=== PATIENT | male | born 1935 | race Caucasian/White ===

== ENCOUNTER → 2018-01-18 07:35 | Outpatient (CLI) | payer OTHER, SELFPAY ==
--- NOTE | 2018-01-18 | DI.MRI.S_ITS ---
PROCEDURE: MR HEAD/BRAIN WO CON INDICATIONS: MEMORY LOSS TECHNIQUE: Non-contrast axial T1 spin echo, axial T2 fast spin echo, sagittal and axial FLAIR, coronal T2 fast spin echo, axial gradient echo, axial diffusion and ADC through the brain. COMPARISON: [facility] , CT, BRAIN W/O CONTRAST, 12/01/2007, 13:39. [facility], CT, BRAIN W/O CONTRAST, 12/27/2012, 15:01. [facility], MR, MR BRAIN WO CON, 12/20/2015, 9:20. FINDINGS: Image quality: Excellent. CSF spaces: Ventricles appear symmetric in size and shape. Basal cisterns are patent. No extra-axial fluid collections. Brain: No intracranial bleeds or mass effects. There is cerebral volume loss for age. There are periventricular and deep white matter chronic small vessel ischemic changes. Brainstem appears normal. Diffusion-weighted images show no acute ischemic insults. No chronic ischemic insults. Normal intravascular flow voids are present. Skull and face: Calvarial bone marrow is normal in signal. Orbits are normal. Sinuses: Sinuses and mastoids are clear. Nasal septum deviates to the left. IMPRESSION: 1. No acute intracranial abnormality. 2. Mild age-related atrophy and chronic deep white matter ischemic changes show no appreciable progression since prior exam. Dictated by: Terry Stuart M.D. on 01/18/2018 at 9:24 Approved by: Terry Stuart M.D. on 01/18/2018 at 9:42
== END ==
PROVIDERS: PCP Family Medicine; Visit Provider Family Medicine
DX: R41.3 Other amnesia (principal)
CPT/HCPCS: 70551

== ENCOUNTER 2018-12-11 10:44 | Emergency (ER) | payer OTHER, SELFPAY ==
[2018-12-11 10:50] VITALS: BP 155/83; PULSE 62; RESP 15; TEMP 36.4; O2SAT 99
--- NOTE | 2018-12-11 10:52 | DI.RAD.S_ITS ---
PROCEDURE: XR CHEST 1V INDICATIONS: chest pain TECHNIQUE: One view of the chest was acquired. COMPARISON: [facility], CHEST 1 VIEW, 07/01/2017, 6:55. [facility], CHEST 1 VIEW, 06/02/2017, 12:59. FINDINGS: Surgical changes and devices: Sternotomy wires and mediastinal clips are seen. Lungs and pleura: Lungs are clear. No pleural effusions or pneumothorax. Mediastinum: The cardiac contours are within normal limits. The aorta demonstrates calcification and tortuosity. Bones and chest wall: No suspicious bony lesions. Age-appropriate bony degenerative changes are seen. Overlying soft tissues appear unremarkable. IMPRESSION: No acute cardiopulmonary process is seen. Postoperative and degenerative changes are seen. Dictated by: Charli Grant M.D. on 12/11/2018 at 10:41 Approved by: Charli Grant M.D. on 12/11/2018 at 10:42
[2018-12-11] MEDS: ASPIRIN 81 MG TAB 324 MG PO (11:09)
[2018-12-11] MEDS: SODIUM CHLORIDE 0.9% 1,000 ML 150 ML IV (11:09)
[2018-12-11 11:11] LABS: Add Manual Diff / Slide Review NO; Basophils Absolute Auto 0 /uL (0-100); Basophils Percent Auto 0.8 % (0-2); Eosinophils Absolute Auto 100 /uL (0-450); Eosinophils Percent Auto 2.2 % (2-4); Hematocrit 40.9 % (41-53); Hemoglobin 13.8 g/dL (13.5-17.5); Lymphocytes Absolute Auto 1600 /uL (1100-4500); Lymphocytes Percent Auto 33.1 % (25-40); Mean Corpuscular HGB Conc 33.8 % (30-36); Mean Corpuscular Hemoglobin 30.4 PG (26-34); Mean Corpuscular Volume 89.9 fL (80-100); Monocytes Absolute Auto 300 /uL (0-900); Monocytes Percent Auto 6.7 % (3-14); Neutrophils Absolute Auto 2800 /uL (1500-7000); Neutrophils Percent Auto 57.2 % (50-75); Platelet Count 184 X10^3/uL (150-400); Red Blood Cell Count 4.54 X10^6/uL (4.5-5.9); Red Cell Distribution Width 13.5 % (11.6-14.8); White Blood Cell Count 4.9 X10^3/uL (4.5-11.0)
[2018-12-11 11:25] LABS: Alanine Aminotransferase 23 IU/L (21-72); Albumin 4.5 g/dL (3.5-5.0); Albumin Globulin Ratio 1.6 (1.0-2.8); Alkaline Phosphatase 95 U/L (38-126); Aspartate Aminotransferase 30 IU/L (17-59); BUN Creatinine Ratio 12.2 (6-22); Bilirubin Total 0.8 mg/dL (0.2-1.3); Blood Urea Nitrogen 11 mg/dL (9-20); Calcium 9.5 mg/dL (8.4-10.2); Carbon Dioxide 27 mmol/L (22-32); Chloride 103 mmol/L (98-107); Creatine Kinase 142 U/L (55-170); Estimated Glomerular Filt Rate > 60.0 mL/min (>60); Globulin 2.8 g/dL (1.7-4.1); Glucose 142 mg/dL (80-110); Lipase 49 U/L (23-300); Potassium 3.9 mmol/L (3.4-5.1); Sodium 140 mmol/L (137-145); Total Protein 7.3 g/dL (6.3-8.2)
[2018-12-11 11:37] LABS: Troponin I < 0.012 ng/mL (0.01-0.034)
[2018-12-11 11:41] LABS: B Type Natriuretic Peptide 115 (<100); CKMB % Relative Index 1.9 % (1.5-5.0); Creatine Kinase MB 2.69 ng/mL (<2.37); HEMOLYSIS 17 (0-50)
--- NOTE | 2018-12-11 11:55 | DI.CT.S_ITS ---
PROCEDURE: CT HEAD/BRAIN WO CON INDICATIONS: dizziness TECHNIQUE: Noncontrast 4.5 mm thick angled axial sections acquired from the foramen magnum to the vertex, with coronal and sagittal reformats. For radiation dose reduction, the following was used: automated exposure control, adjustment of mA and/or kV according to patient size. COMPARISON: [facility], MR, MR HEAD/BRAIN WO CON, 01/18/2018, 8:20. Correlation is also made with brain MRI 12/20/15, head CT 12/27/13, and head CT 12/01/07. FINDINGS: Image quality: Excellent. CSF spaces: Basal cisterns are patent. No extra-axial fluid collections. The ventricles are symmetric in size and shape. Brain: No intracranial bleeds or masses. There is cerebral volume loss for age, with resultant ventricular and sulcal prominence. There are periventricular and deep white matter chronic small vessel ischemic changes. There is intracranial internal carotid artery atherosclerosis. Skull and face: Calvarium and visualized facial bones appear intact, without suspicious lesions. Sinuses: Mucosal thickening is seen within the left maxillary sinus. No abnormal fluid is seen within the mastoid air cells or within the middle ear cavities. IMPRESSION: Normal intracranial study for age. Note is made of age-appropriate brain parenchymal volume loss and chronic small vessel ischemic changes. Dictated by: Charli Grant M.D. on 12/11/2018 at 11:23 Approved by: Charli Grant M.D. on 12/11/2018 at 11:26
--- NOTE | 2018-12-11 12:04 | PC.NURSE ---
MD aware of pt hyperventilating. EKG done and pt states is dizzy. I dont know when asked about pain. Denies CP. Looks like possible Panic attack.
[2018-12-11 12:18] LABS: D Dimer 419 ng/mL (<230)
[2018-12-11 12:30] VITALS: BP 122/70; PULSE 56; RESP 17; O2SAT 99
--- NOTE | 2018-12-11 12:33 | ED.CHESTPAIN ---
HPI - Chest Pain General Chief Complaint: Chest Pain Stated Complaint: chest pain Time Seen by Provider: 12/11/18 10:45 Source: patient and family Mode of arrival: ambulatory Limitations: no limitations History of Present Illness HPI narrative: 83-year-old male nonsmoker with history of cardiac disease and GERD presents with episodes of chest pain on off for about least the past day or 2. He denies any current pain. He denies any provocation, palliation or radiation of his pain. He denies associated symptoms such as weakness, lightheadedness, nausea, vomiting, diaphoresis. He denies any recent travel or injury. MD complaint: chest pain Onset (ago): day(s) Duration: intermittent and now resolved Pain location: left chest Severity: moderate Quality: heaviness Pain radiation: none Relieving factors: nothing Exacerbating factors: nothing Treatments prior to arrival chest pain: none Related Data Home Medications Medication Instructions Recorded Confirmed aspirin 81 mg PO QDAY #0 05/30/06 Previous Rx's Medication Instructions Recorded atorvastatin [Lipitor] 40 mg PO HS #30 tab 07/02/17 isosorbide mononitrate 30 mg PO QDAY #30 tab 07/02/17 pantoprazole [Protonix] 40 mg PO QDAY #30 tab 07/02/17 Allergies Allergy/AdvReac Type Severity Reaction Status Date / Time No Known Drug Allergies Allergy Verified 12/11/18 10:55 Review of Systems Constitutional Denies chills, Denies fever(s), Denies lethargy and Denies weakness Eyes Denies change in vision, Denies eye discharge, Denies irritation and Denies loss of vision ENT Ears, Nose, Mouth, and Throat: Denies change in voice, Denies neck pain and Denies sore throat Cardiovascular Reports chest pain, Denies irregular heart rhythm, Denies lightheadedness, Denies palpitations, Denies dyspnea, Denies dyspnea on exertion and Denies orthopnea Respiratory Denies cough, Denies dyspnea, Denies dyspnea on exertion and Denies wheezing Gastrointestinal Gastrointestinal: Denies abdominal pain, Denies change in bowel habits, Denies diarrhea, Denies nausea and Denies vomiting Genitourinary Denies hematuria, Denies flank pain, Denies urinary incontinence and Denies urinary urgency Musculoskeletal Denies neck pain Integumentary/Breasts Denies pruritus, Denies erythema, Denies rash and Denies wounds Neurologic Denies confusion, Denies loss of vision and Denies weakness Psychiatric Denies anxiety, Denies confusion, Denies depression, Denies homicidal ideation and Denies suicidal ideation Endocrine Denies palpitations Hematologic/Lymphatic Denies easy bruising Allergic/Immunologic Denies wheezing PFSH Social History Smoking Status: Never smoker Social History Smoking Status: Never smoker Exam Narrative Exam Narrative: GENERAL: 83-year-old male pleasantly confused but at baseline per , no obvious distress HEAD: Atraumatic. Normocephalic. No temporal or scalp tenderness. EYES: Pupils equal round and reactive. Extraocular motions intact. No scleral icterus. No injection or drainage. ENT: Nose without bleeding, purulent drainage or septal hematoma. Throat without erythema, tonsillar hypertrophy or exudate. Uvula midline. Airway patent. NECK: Trachea midline. No JVD or lymphadenopathy. Supple, nontender, no meningeal signs. CARDIOVASCULAR: Regular rate and rhythm without murmurs, gallops, or rubs. RESPIRATORY: Clear to auscultation. Breath sounds equal bilaterally. No wheezes, rales, or rhonchi. GASTROINTESTINAL: Abdomen soft, non-tender, nondistended. No hepato-splenomegaly, or palpable masses. No guarding. EXTREMITIES: No clubbing, cyanosis, or edema. No joint tenderness, effusion, or edema noted. BACK: Nontender without deformity or crepitance. No flank tenderness. NEURO: AOx3. SKIN: No rash or erythema. Initial Vital Signs Initial Vital Signs: Vital Signs Temperature 97.6 F 12/11/18 10:50 Pulse Rate 62 12/11/18 10:50 Respiratory Rate 15 12/11/18 10:50 Blood Pressure 155/83 H 12/11/18 10:50 Pulse Oximetry 99 12/11/18 10:50 Course Course Narrative: Patient had an episode of dizziness which was seemingly unprovoked. Head CT was ordered to rule out intracranial pathology Orders Ordered: ED Orders 12/11/18 10:52 XR chest 1V Stat EKG-12 Lead Stat 12/11/18 11:00 B Type Natriuretic Peptide Stat Complete Blood Count AUTO DIFF Stat Comprehensive Metabolic Panel Stat D Dimer Stat Lipase Stat Troponin & CK Cardiac Panel Stat 12/11/18 11:55 CT head/brain wo con Stat 12/11/18 11:58 EKG-12 Lead Stat Discontinued Medications Aspirin (Aspirin Chew) 324 mg PO NOW ONE Stop: 12/11/18 10:53 Last Admin: 12/11/18 11:09 Dose: 324 mg Sodium Chloride (Normal Saline 0.9%) 1,000 mls @ 150 mls/hr IV CONT CHRISTIANO Last Admin: 12/11/18 11:09 Dose: 150 mls/hr Vital Signs - 8 hr 12/11/18 10:50 12/11/18 12:30 12/11/18 12:53 Temperature 97.6 F Pulse Rate 62 56 L 50 L Respiratory Rate 15 17 15 Blood Pressure 155/83 H 122/70 Blood Pressure [Left Arm] 122/70 Pulse Oximetry 99 99 100 MDM - Chest Pain Lab Data Result diagrams: 12/11/18 11:00 12/11/18 11:00 Lab Results 12/11/18 12/11/18 12/11/18 Range/Units 11:00 11:00 11:00 WBC 4.9 (4.5-11.0) X10^3/uL RBC 4.54 (4.5-5.9) X10^6/uL Hgb 13.8 (13.5-17.5) g/dL Hct 40.9 L (41-53) % MCV 89.9 (80-100) fL MCH 30.4 (26-34) PG MCHC 33.8 (30-36) % RDW 13.5 (11.6-14.8) % Plt Count 184 (150-400) X10^3/uL Neut % (Auto) 57.2 (50-75) % Lymph % (Auto) 33.1 (25-40) % [place] % (Auto) 6.7 (3-14) % Eos % (Auto) 2.2 (2-4) % Baso % (Auto) 0.8 (0-2) % Neut # (Auto) 2800 (6005-4156) /uL Lymph # (Auto) 1600 (4818-9794) /uL [place] # (Auto) 300 (0-900) /uL Eos # (Auto) 100 (0-450) /uL Baso # (Auto) 0 (0-100) /uL D-Dimer 419 H (<230) ng/mL Sodium 140 (137-145) mmol/L Potassium 3.9 (3.4-5.1) mmol/L Chloride 103 (98-107) mmol/L Carbon Dioxide 27 (22-32) mmol/L BUN 11 (9-20) mg/dL Creatinine 0.90 (0.66-1.25) mg/dL Estimated GFR > 60.0 (>60) mL/min BUN/Creatinine Ratio 12.2 (6-22) Glucose 142 H (80-110) mg/dL Calcium 9.5 (8.4-10.2) mg/dL Total Bilirubin 0.8 (0.2-1.3) mg/dL AST 30 (17-59) IU/L ALT 23 (21-72) IU/L Alkaline Phosphatase 95 (38-126) U/L Total Creatine Kinase 142 (55-170) U/L CK-MB (CK-2) 2.69 H (<2.37) ng/mL CK-MB (CK-2) Rel Index 1.9 (1.5-5.0) % Troponin I < 0.012 (0.01-0.034) ng/mL B-Natriuretic Peptide 115 H (<100) Total Protein 7.3 (6.3-8.2) g/dL Albumin 4.5 (3.5-5.0) g/dL Globulin 2.8 (1.7-4.1) g/dL Albumin/Globulin Ratio 1.6 (1.0-2.8) Lipase 49 (23-300) U/L Imaging Data Chest x-ray: Radiologist's impression: CT scan - head: Radiologist's impression: [place] [address] CT Scan Report Signed Patient: Wellington Ocampo#: [id number] : 1935Acct:[id number] Age/Sex: 83 / MDate of Service: 12/11/18 Loc: ED Accession Number: [id number] Procedure: CT head/brain wo con Ordering Provider: Duane Luz D.O. PROCEDURE: CT HEAD/BRAIN WO CON INDICATIONS: dizziness TECHNIQUE: Noncontrast 4.5 mm thick angled axial sections acquired from the foramen magnum to the vertex, with coronal and sagittal reformats. For radiation dose reduction, the following was used: automated exposure control, adjustment of mA and/or kV according to patient size. COMPARISON: [facility], MR, MR HEAD/BRAIN WO CON, 01/18/2018, 8:20. Correlation is also made with brain MRI 12/20/15, head CT 12/27/13, and head CT 12/01/07. FINDINGS: Image quality: Excellent. CSF spaces: Basal cisterns are patent. No extra-axial fluid collections. The ventricles are symmetric in size and shape. Brain: No intracranial bleeds or masses. There is cerebral volume loss for age, with resultant ventricular and sulcal prominence. There are periventricular and deep white matter chronic small vessel ischemic changes. There is intracranial internal carotid artery atherosclerosis. Skull and face: Calvarium and visualized facial bones appear intact, without suspicious lesions. Sinuses: Mucosal thickening is seen within the left maxillary sinus. No abnormal fluid is seen within the mastoid air cells or within the middle ear cavities. IMPRESSION: Normal intracranial study for age. Note is made of age-appropriate brain parenchymal volume loss and chronic small vessel ischemic changes. Dictated by: Charli Grant M.D. on 12/11/2018 at 11:23 Approved by: Charli Grant M.D. on 12/11/2018 at 11:26 MDM Narrative Medical decision making narrative: Multiple etiologies for patient's symptoms considered including: [Coronary artery disease versus atypical chest pain versus pneumonia versus pulmonary embolism versus other] Patient's symptoms improved or duration of stay with above-stated therapies. Findings and discharge diagnosis discussed with patient/family followed by verbalization of understanding Return precautions discussed with patient/family whom verbalize understanding. Discharge Plan Departure Patient Disposition: Home Clinical Impression: Atypical chest pain Discharge Date/Time: 12/11/18 12:54 Interventions: ED Discharge Assessment Last Done: 12/11/18 12:53 Instructions: DI for Atypical Chest Pain Activity Restrictions/Additional Instructions: *You have been diagnosed with [atypical chest pain] *What to do: *Take medications as directed *Follow up with your primary care provider in 2-3 days, call for an appointment. Let them know you were seen in the Emergency Department and that we ask that you be seen in follow up *Return to ER if you should have any new, worsening or concerning symptoms Prescriptions: No Action aspirin 81 MG tablet,delayed release (DR/EC) 81 mg PO QDAY Qty: 0 RF: 0 pantoprazole [Protonix] 40 MG tablet,delayed release (DR/EC) 40 mg PO QDAY Qty: 30 RF: 0 isosorbide mononitrate 30 MG tablet extended release 24 hr 30 mg PO QDAY Qty: 30 RF: 0 atorvastatin [Lipitor] 40 MG tablet 40 mg PO HS Qty: 30 RF: 3 Referrals: Lavelle Oliveira MD [Primary Care Provider] -
[2018-12-11 12:53] VITALS: BP 122/70; PULSE 50; RESP 15; O2SAT 100
--- NOTE | 2018-12-25 07:20 | PC.NURSE ---
NS 225cc total ran from 1100 to 1230
== END 2018-12-11 12:54 | disposition home or self-care (01) ==
PROVIDERS: Emergency Provider Emergency Medicine; PCP Family Medicine
DX: R07.89 Other chest pain (principal)
CPT/HCPCS: 36591; 70450; 71045; 80053; 82550; 82553; 83690; 83880; 84484; 85025; 85379; 93005; 96360; 99283; 99285

== ENCOUNTER 2019-06-06 16:59 | Emergency (ER) | payer OTHER, SELFPAY ==
[2019-06-06 17:09] VITALS: BP 151/89; PULSE 64; RESP 16; TEMP 36.4; O2SAT 100
--- NOTE | 2019-06-06 17:23 | ED_ITS ---
HPI - General Adult General Chief complaint: Dizziness Stated complaint: dizzy, h/o dementia Time Seen by Provider: 06/06/19 17:08 Source: patient and EMS Mode of arrival: EMS Limitations: no limitations History of Present Illness HPI narrative: 84-year-old male with a history of dementia. Is on medications for this however is fairly high functioning at home brought in by EMS for concerns of dizziness. Apparently this symptoms started earlier today. He is here with his . They are both fairly poor historians with regard to the symptoms he is having. He denies any chest pain or shortness of breath. His states that she is concerned about the shaking he is having in his arms. Patient denies any room spinning sensation. Have not tried anything for her symptoms prior to arrival Related Data Home Medications Medication Instructions Recorded Confirmed aspirin 81 mg PO QDAY #0 05/30/06 ascorbic acid (vitamin C) [Vitamin 250 mg PO DAILY 06/06/19 06/06/19 C] aspirin 81 mg PO DAILY 06/06/19 06/06/19 atorvastatin 40 mg PO DAILY 06/06/19 06/06/19 gabapentin 300 mg PO BID-TID 06/06/19 06/06/19 ibuprofen 200 mg PO DIRECTED PRN 06/06/19 06/06/19 memantine 10 mg PO BID 06/06/19 06/06/19 Previous Rx's Medication Instructions Recorded atorvastatin [Lipitor] 40 mg PO HS #30 tab 07/02/17 isosorbide mononitrate 30 mg PO QDAY #30 tab 07/02/17 pantoprazole [Protonix] 40 mg PO QDAY #30 tab 07/02/17 Allergies Allergy/AdvReac Type Severity Reaction Status Date / Time No Known Drug Allergies Allergy Unverified 06/06/19 17:33 Review of Systems Constitutional Constitutional: Denies chills, Denies fever(s), Denies headache(s) and Denies weakness Eyes Eyes: Denies change in vision ENT Ears, Nose, Mouth, and Throat: Denies headache(s) and Reports disequilibrium Cardiovascular Cardiovascular: Denies chest pain and Denies dyspnea Respiratory Respiratory: Denies cough and Denies dyspnea Gastrointestinal Gastrointestinal: Denies abdominal pain, Denies nausea and Denies vomiting Musculoskeletal Musculoskeletal: Denies myalgias, Denies arthralgias and Denies tingling Comments: Shaking of left hand Integumentary/Breasts Skin/Breast: Denies rash Neurologic Neurologic: Denies behavioral changes, Denies headache(s), Denies tingling, Denies paresthesias, Reports disequilibrium and Denies weakness Psychiatric Psychiatric: Denies behavioral changes Hematologic/Lymphatic Hematologic/Lymphatic: Denies easy bleeding and Denies easy bruising Patient History Medical History Dementia (Acute) Social History Smoking Status: Never smoker alcohol intake frequency: holidays/special occasions only Substance Use Type: does not use Exam Initial Vital Signs Initial Vital Signs: Vital Signs Temperature 97.5 F L 06/06/19 17:09 Pulse Rate 64 06/06/19 17:09 Respiratory Rate 16 06/06/19 17:09 Blood Pressure 151/89 H 06/06/19 17:09 Pulse Oximetry 100 06/06/19 17:09 Const General: cooperative and comfortable Orientation: alert, awake, oriented to person, oriented to place and not oriented to time HENMT Head: normal to inspection and normocephalic Ears: TM's normal bilaterally Nose: external nose normal Eyes Pupils: PERRL EOM: EOM intact bilaterally Resp Effort & Inspection: normal respiratory effort Auscultation: clear to auscultation bilaterally Cardio Rate: regular rate Rhythm: regular rhythm Pulses: radial pulses present GI Inspection: non-distended Palpation: soft Skin Lesions: no lesions Rashes: no rashes Neuro General: alert, awake and oriented x3 Cranial Nerves: CN's II-XI intact bilaterally Speech: speech normal Motor: muscle tone normal throughout, strength 5/5 throughout and no pronator drift Sensory Exam: no sensory deficits noted Extrem General: normal to inspection, capillary refill normal and No edema Psych Appearance: grossly normal and well kempt Scores GCS [place] coma scale eye opening: Spontaneous [place] coma scale verbal response: Orientated [place] coma scale motor response: Obey commands [place] coma scale total score: 15 Course Orders Ordered: ED Orders 06/06/19 17:09 EKG-12 Lead Stat 06/06/19 17:23 CT head/brain wo con Stat 06/06/19 17:28 Complete Blood Count AUTO DIFF Stat Comprehensive Metabolic Panel Stat Lipase Stat Troponin I Stat Discontinued Medications Meclizine HCl (Antivert) 25 mg PO NOW ONE Stop: 06/06/19 17:57 Last Admin: 06/06/19 18:23 Dose: 25 mg Documented by: TIFFANY Vital Signs Vital signs: Vital Signs - 8 hr 06/06/19 17:09 06/06/19 17:30 06/06/19 18:05 Temperature 97.5 F L Pulse Rate 64 59 L 60 Respiratory Rate 16 17 14 Blood Pressure 151/89 H Blood Pressure [Right Arm] 114/89 139/82 Pulse Oximetry 100 99 Medical Decision Making Medical Records Medical records reviewed: Yes I reviewed the patient's medical records. Lab Data Lab results reviewed: Yes I reviewed the patient's lab results. Result diagrams: 06/06/19 17:28 06/06/19 17:28 Labs: Lab Results 06/06/19 06/06/19 Range/Units 17:28 17:28 WBC 6.3 (4.5-11.0) X10^3/uL RBC 4.58 (4.5-5.9) X10^6/uL Hgb 14.1 (13.5-17.5) g/dL Hct 41.6 (41-53) % MCV 90.8 (80-100) fL MCH 30.7 (26-34) PG MCHC 33.8 (30-36) % RDW 12.9 (11.6-14.8) % Plt Count 212 (150-400) X10^3/uL Neut % (Auto) 43.0 L (50-75) % Lymph % (Auto) 43.4 H (25-40) % [place] % (Auto) 9.5 (3-14) % Eos % (Auto) 3.3 (2-4) % Baso % (Auto) 0.8 (0-2) % Neut # (Auto) 2700 (5862-4563) /uL Lymph # (Auto) 2700 (8833-8325) /uL [place] # (Auto) 600 (0-900) /uL Eos # (Auto) 200 (0-450) /uL Baso # (Auto) 0 (0-100) /uL Sodium 139 (137-145) mmol/L Potassium 4.0 (3.4-5.1) mmol/L Chloride 102 (98-107) mmol/L Carbon Dioxide 27 (22-32) mmol/L BUN 18 (9-20) mg/dL Creatinine 1.00 (0.66-1.25) mg/dL Estimated GFR > 60.0 (>60) mL/min BUN/Creatinine Ratio 18.0 (6-22) Glucose 96 (80-110) mg/dL Calcium 9.7 (8.4-10.2) mg/dL Total Bilirubin 0.6 (0.2-1.3) mg/dL AST 33 (17-59) IU/L ALT 27 (<50) IU/L Alkaline Phosphatase 110 (38-126) U/L Troponin I < 0.012 (0.01-0.034) ng/mL Total Protein 7.8 (6.3-8.2) g/dL Albumin 4.7 (3.5-5.0) g/dL Globulin 3.1 (1.7-4.1) g/dL Albumin/Globulin Ratio 1.5 (1.0-2.8) Lipase 68 (23-300) U/L Urine Dip Bedside Urine Glucose Negative Bedside Urine Bilirubin - Negative Bedside Urine Ketone - Negative Urine Specific Rose 1.010 Bedside Urine Occult Blood - Negative Bedside Urine pH 7.5 Bedside Urine Protein - Negative Bedside Urine Urobilinogen - Negative Bedside Urine Nitrite - Negative Bedside Urine Leukocytes - Negative Esterase Point of care testing: Urine Dip Bedside Urine Glucose Negative Bedside Urine Bilirubin - Negative Bedside Urine Ketone - Negative Urine Specific Rose 1.010 Bedside Urine Occult Blood - Negative Bedside Urine pH 7.5 Bedside Urine Protein - Negative Bedside Urine Urobilinogen - Negative Bedside Urine Nitrite - Negative Bedside Urine Leukocytes - Negative Esterase Imaging Data CT scan - head: Radiologist's impression: [place] [address] CT Scan Report Signed Patient: Kierra Ocampo#: [id number] : 7Acct:[id number] Age/Sex: 84 / MDate of Service: 06/06/19 Loc: ED Accession Number: [id number] Procedure: CT head/brain wo con Ordering Provider: Rajeev Walden D.O. PROCEDURE: CT HEAD/BRAIN WO CON INDICATIONS: ALTERED MENTAL STATUS AND PASSING OUT TECHNIQUE: Noncontrast 4.5 mm thick angled axial sections acquired from the foramen magnum to the vertex, with coronal and sagittal reformats. For radiation dose reduction, the following was used: automated exposure control, adjustment of mA and/or kV according to patient size. COMPARISON: [facility], CT, CT HEAD/BRAIN WO MARCIE, 12/11/2018, 12:06. FINDINGS: Image quality: Excellent. CSF spaces: Basal cisterns are patent. No extra-axial fluid collections. The ventricles are symmetric in size and shape. Brain: No intracranial bleeds or masses. There is cerebral volume loss for age, with resultant ventricular and sulcal prominence. There are periventricular and deep white matter chronic small vessel ischemic changes. There is intracranial internal carotid artery atherosclerosis. Skull and face: Calvarium and visualized facial bones appear intact, without suspicious lesions. Sinuses: Visualized sinuses and mastoids are clear. IMPRESSION: Mild to moderate microvascular atherosclerotic change in the deep white matter regions, expected for advanced age, no source for altered mental status is found. Dictated by: Richard Aleman M.D. on 06/06/2019 at 17:41 Approved by: Richard Aleman M.D. on 06/06/2019 at 17:42 ECG Data Attestation: I personally reviewed and interpreted this ECG as follows: Prior ECG tracings: not available for review Interpretation: Sinus rhythm Normal axis Ventricular rate is [address] T wave changes MDM Narrative Medical decision making narrative: EKG is unremarkable labs are unremarkable, head CT shows no acute changes. Low suspicion for CVA. Low suspicion for TIA. Low suspicion for ACS. Patient was able to ambulate to the bathroom without any problems. He states that he was still somewhat lightheaded but did not feel like he needed a walker to help him walk. I did offer him one. We did discuss the importance of avoiding falling. We discussed return precautions. I feel that we could hold on further workup for now. He was given return precautions. Both him and his expressed understanding and agreement with plan. Discharge Plan Departure Patient Disposition: Home Clinical Impression: Dizziness Instructions: How to Prevent Falls, DI for Dizziness-Nonvertigo Activity Restrictions/Additional Instructions: Continue all of your medications as directed. I recommend that you follow up with your primary provider in the next couple days. Return to the emergency department for any new or worsening symptoms Prescriptions: No Action aspirin 81 MG tablet,delayed release (DR/EC) 81 mg PO QDAY Qty: 0 RF: 0 pantoprazole [Protonix] 40 MG tablet,delayed release (DR/EC) 40 mg PO QDAY Qty: 30 RF: 0 isosorbide mononitrate 30 MG tablet extended release 24 hr 30 mg PO QDAY Qty: 30 RF: 0 atorvastatin [Lipitor] 40 MG tablet 40 mg PO HS Qty: 30 RF: 3 atorvastatin 40 mg Tablet 40 mg PO DAILY RF: 0 aspirin 81 mg Tablet,Delayed Release (Dr/Ec) 81 mg PO DAILY RF: 0 ascorbic acid (vitamin C) [Vitamin C] 250 mg Tablet 250 mg PO DAILY RF: 0 ibuprofen 200 mg Tablet 200 mg PO DIRECTED PRN (Reason: pain) RF: 0 gabapentin 300 mg Capsule 300 mg PO BID-TID RF: 0 memantine 10 mg Tablet 10 mg PO BID RF: 0 Referrals: Lavelle Oliveira MD [Primary Care Provider] -
[2019-06-06 17:30] VITALS: BP 114/89; PULSE 59; RESP 17; O2SAT 99
[2019-06-06 17:35] LABS: Add Manual Diff / Slide Review NO; Basophils Absolute Auto 0 /uL (0-100); Basophils Percent Auto 0.8 % (0-2); Eosinophils Absolute Auto 200 /uL (0-450); Eosinophils Percent Auto 3.3 % (2-4); Hematocrit 41.6 % (41-53); Hemoglobin 14.1 g/dL (13.5-17.5); Lymphocytes Absolute Auto 2700 /uL (1100-4500); Lymphocytes Percent Auto 43.4 % (25-40); Mean Corpuscular HGB Conc 33.8 % (30-36); Mean Corpuscular Hemoglobin 30.7 PG (26-34); Mean Corpuscular Volume 90.8 fL (80-100); Monocytes Absolute Auto 600 /uL (0-900); Monocytes Percent Auto 9.5 % (3-14); Neutrophils Absolute Auto 2700 /uL (1500-7000); Platelet Count 212 X10^3/uL (150-400); Red Blood Cell Count 4.58 X10^6/uL (4.5-5.9); Red Cell Distribution Width 12.9 % (11.6-14.8); White Blood Cell Count 6.3 X10^3/uL (4.5-11.0)
[2019-06-06 17:50] LABS: Alanine Aminotransferase 27 IU/L (<50); Albumin 4.7 g/dL (3.5-5.0); Albumin Globulin Ratio 1.5 (1.0-2.8); Alkaline Phosphatase 110 U/L (38-126); Aspartate Aminotransferase 33 IU/L (17-59); Bilirubin Total 0.6 mg/dL (0.2-1.3); Blood Urea Nitrogen 18 mg/dL (9-20); Calcium 9.7 mg/dL (8.4-10.2); Carbon Dioxide 27 mmol/L (22-32); Chloride 102 mmol/L (98-107); Estimated Glomerular Filt Rate > 60.0 mL/min (>60); Globulin 3.1 g/dL (1.7-4.1); Glucose 96 mg/dL (80-110); HEMOLYSIS < 15 (0-50); Lipase 68 U/L (23-300); Sodium 139 mmol/L (137-145); Total Protein 7.8 g/dL (6.3-8.2)
[2019-06-06 18:02] LABS: Troponin I < 0.012 ng/mL (0.01-0.034)
[2019-06-06 18:05] VITALS: BP 139/82; PULSE 60; RESP 14
[2019-06-06] MEDS: MECLIZINE HCL 12.5 MG TABLET 25 MG PO (18:23)
--- NOTE | 2019-06-06 19:01 | PC.NURSE ---
ambulated to restroom. C/O dizziness. States unsure if it has improved at all but feels steady on feet. Updated Dr. Walden
[2019-06-06 19:44] VITALS: BP 107/70; PULSE 67; RESP 20; TEMP 36.8; O2SAT 98
== END 2019-06-06 19:45 | disposition home or self-care (01) ==
PROVIDERS: Emergency Provider Emergency Medicine; PCP Family Medicine
DX: R42 Dizziness and giddiness (principal); R41.82 Altered mental status, unspecified
CPT/HCPCS: 36415; 70450; 80053; 81003; 83690; 84484; 85025; 93005; 99283; 99285

== ENCOUNTER 2019-07-28 14:53 | Emergency (ER) | payer OTHER, SELFPAY ==
--- NOTE | 2019-07-28 15:01 | DI.RAD.S_ITS ---
PROCEDURE: XR CHEST 1V INDICATIONS: chest pain TECHNIQUE: One view of the chest was acquired. COMPARISON: [facility], , XR CHEST 1V, 12/11/2018, 11:21. [facility], CR, CHEST 1 VIEW, 07/01/2017, 6:55. FINDINGS: Surgical changes and devices: Stable over time, sternotomy wires, presumed prior CABG. Lungs and pleura: Lungs are abnormal with a mild chronic interstitial prominence. No pleural effusions or pneumothorax. Mediastinum: Mediastinal contours appear normal. Heart size is normal. Bones and chest wall: No suspicious bony lesions. Overlying soft tissues appear unremarkable. 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 Dictated by: Richard Aleman M.D. on 07/28/2019 at 15:52 Approved by: Richard Aleman M.D. on 07/28/2019 at 15:53
[2019-07-28 15:26] VITALS: BP 124/62; PULSE 59; RESP 12; O2SAT 100
[2019-07-28 15:30] LABS: Add Manual Diff / Slide Review NO; Basophils Absolute Auto 0 /uL (0-100); Basophils Percent Auto 0.9 % (0-2); Eosinophils Absolute Auto 100 /uL (0-450); Eosinophils Percent Auto 1.9 % (2-4); Hemoglobin 12.9 g/dL (13.5-17.5); Lymphocytes Absolute Auto 1400 /uL (1100-4500); Mean Corpuscular HGB Conc 33.9 % (30-36); Mean Corpuscular Hemoglobin 30.7 PG (26-34); Mean Corpuscular Volume 90.6 fL (80-100); Monocytes Absolute Auto 500 /uL (0-900); Monocytes Percent Auto 8.4 % (3-14); Neutrophils Absolute Auto 3400 /uL (1500-7000); Neutrophils Percent Auto 62.8 % (50-75); Platelet Count 201 X10^3/uL (150-400); Red Blood Cell Count 4.19 X10^6/uL (4.5-5.9); Red Cell Distribution Width 13.2 % (11.6-14.8); White Blood Cell Count 5.5 X10^3/uL (4.5-11.0)
[2019-07-28 15:35] LABS: Prothrombin Time 11.7 SECONDS (10.1-12.7)
[2019-07-28 15:37] LABS: PTT Partial Thromboplastin Tim 34 SECONDS (26.4-36.2)
[2019-07-28 15:39] LABS: Alanine Aminotransferase 14 IU/L (<50); Albumin 4.1 g/dL (3.5-5.0); Albumin Globulin Ratio 1.4 (1.0-2.8); Alkaline Phosphatase 93 U/L (38-126); Aspartate Aminotransferase 23 IU/L (17-59); Bilirubin Total 0.3 mg/dL (0.2-1.3); Blood Urea Nitrogen 17 mg/dL (9-20); Calcium 9.1 mg/dL (8.4-10.2); Carbon Dioxide 27 mmol/L (22-32); Chloride 104 mmol/L (98-107); Creatine Kinase 92 U/L (55-170); Estimated Glomerular Filt Rate > 60.0 mL/min (>60); Glucose 74 mg/dL (80-110); HEMOLYSIS 16 (0-50); Lipase 62 U/L (23-300); Potassium 3.7 mmol/L (3.4-5.1); Sodium 140 mmol/L (137-145); Total Protein 7.1 g/dL (6.3-8.2)
[2019-07-28 15:50] LABS: Troponin I < 0.012 ng/mL (0.01-0.034)
[2019-07-28] MEDS: SODIUM CHLORIDE 0.9% 1,000 ML 1000 ML IV (16:10)
[2019-07-28 17:00] VITALS: BP 122/67; PULSE 57; RESP 14; O2SAT 98
[2019-07-28 18:30] VITALS: BP 124/69; PULSE 52; RESP 14; O2SAT 98
--- NOTE | 2019-07-28 18:32 | ED.CHESTPAIN ---
HPI - Chest Pain General Chief Complaint: Chest Pain Stated Complaint: CP Time Seen by Provider: 07/28/19 15:20 Source: patient Mode of arrival: Wheelchair History of Present Illness HPI narrative: The patient is an 84-year-old male who is a very poor historian and very vague. He had a transient period of chest pain. He states that his chest pain started while driving a car. He stopped and let his drive because he felt dizzy and lightheaded as though he might pass out. His discomfort initially was dull in achy. He denied any jaw pain shoulder pain back pain or pain between his shoulder blades. He denied any significant arm pain numbness or tingling. He denied any racing of his heart. When asked what intensity his pain was he had a hard time grasping the concept for giving me a score between 1 in 10. He had mild shortness of breath but no coughing. He denied any indigestion heartburn or chest pain. He primarily seem to concentrate on the fact that he became dizzy and felt as though he might pass out. He denied any fever chills or sweats. He had no cough or shortness of breath. He denied any abdominal pain nausea vomiting diarrhea or troubles urinating. Related Data Home Medications Medication Instructions Recorded Confirmed aspirin 81 mg PO QDAY #0 05/30/06 ascorbic acid (vitamin C) [Vitamin 250 mg PO DAILY 06/06/19 06/06/19 C] aspirin 81 mg PO DAILY 06/06/19 06/06/19 atorvastatin 40 mg PO DAILY 06/06/19 06/06/19 gabapentin 300 mg PO BID-TID 06/06/19 06/06/19 ibuprofen 200 mg PO DIRECTED PRN 06/06/19 06/06/19 memantine 10 mg PO BID 06/06/19 06/06/19 lidocaine 1 patch TOPICAL DAILY 07/28/19 07/28/19 Previous Rx's Medication Instructions Recorded atorvastatin [Lipitor] 40 mg PO HS #30 tab 07/02/17 isosorbide mononitrate 30 mg PO QDAY #30 tab 07/02/17 pantoprazole [Protonix] 40 mg PO QDAY #30 tab 07/02/17 Allergies Allergy/AdvReac Type Severity Reaction Status Date / Time No Known Drug Allergies Allergy Verified 07/28/19 15:00 Review of Systems Review of Systems Narrative: All review of systems were negative except for those mentioned in the history of present illness. Patient History Social History Smoking Status: Never smoker Smoking Status: Never smoker alcohol intake frequency: holidays/special occasions only Substance Use Type: does not use Exam Narrative Exam Narrative: PHYSICAL EXAM: CONSTITUTIONAL: Awake, slow to answer questions and speaks very softly. He had a blunt flat affect that appeared to be depressed. He was in NAD. Does not appear toxic or ill. HEAD: AT/NC EENT: PERRL, FROM of eyes, no discharge, no nystagmus No drainage from the ears, Tympanic membranes intact bilaterally, clear EAC No epistaxis or nasal drainage Oral mucosa is moist and pink, posterior pharynx is without erythema or exudate. NECK: Supple, no obvious JVD, Trachea is midline without stridor, no palpable LN or masses. SPINE: No gross deformity, no palpable tenderness of the cervical, thoracic, lumbar or sacral spine. No CVA tenderness. THORAX: No deformity, retractions, chest wall tenderness, subcutaneous air or crepitice. LUNGS: Clear with symmetrical breath sounds without respiratory distress HEART: Normal heart tones, regular rhythm and rate without murmur. ABDOMEN: Soft, non-tender, normal bowel sounds without guarding, rebound, rigidity or palpable mass EXTREMITIES: No edema, cyanosis, deformity or tenderness. SKIN: No rash, bruising, petechiae or purpura. NEURO: Awake, cranial nerves II-XII are symmetrical and normal, moves all 4 extremities and is ambulatory Initial Vital Signs Initial Vital Signs: Vital Signs Pulse Rate 59 L 07/28/19 15:26 Respiratory Rate 12 07/28/19 15:26 Blood Pressure 124/62 07/28/19 15:26 Pulse Oximetry 100 07/28/19 15:26 Course Course Course Narrative: The patient's initial troponin was within normal limits.183 his 2nd troponin remains pending at this time. He ambulated in the hallway without difficulty or dizziness. He had no orthostatic changes after he received 1 L of fluid. The patient will be discharged home if his 2nd troponin is normal. The patient will be advised to follow-up with his primary care physician to be referred to cardiology for further evaluation of his weakness dizziness and chest discomfort which may require an echocardiogram and Holter monitor. When the patient's chemistries resulted his glucose was 74. The question was whether not his dizziness was secondary to a hypoglycemic reaction. Orders Ordered: Discontinued Medications Sodium Chloride (Normal Saline 0.9%) 1,000 mls @ 1,000 mls/hr IV BOLUS ONE Stop: 07/28/19 17:42 Last Infusion: 07/28/19 17:25 Dose: 0 mls/hr Documented by: Admin: 07/28/19 16:10 Dose: 1,000 mls/hr Documented by: TIFFANY Vital Signs Vital signs: Vital Signs - 8 hr 07/28/19 15:26 07/28/19 17:00 Pulse Rate 59 L 57 L Respiratory Rate 12 14 Blood Pressure [Right Arm] 124/62 122/67 Pulse Oximetry 100 98 MDM - Chest Pain Lab Data Attestation: I reviewed the patient's lab results. Result diagrams: 07/28/19 15:20 07/28/19 15:20 Labs: Lab Results 07/28/19 07/28/19 07/28/19 Range/Units 15:20 15:20 15:20 WBC 5.5 (4.5-11.0) X10^3/uL RBC 4.19 L (4.5-5.9) X10^6/uL Hgb 12.9 L (13.5-17.5) g/dL Hct 38.0 L (41-53) % MCV 90.6 (80-100) fL MCH 30.7 (26-34) PG MCHC 33.9 (30-36) % RDW 13.2 (11.6-14.8) % Plt Count 201 (150-400) X10^3/uL Neut % (Auto) 62.8 (50-75) % Lymph % (Auto) 26.0 (25-40) % [place] % (Auto) 8.4 (3-14) % Eos % (Auto) 1.9 L (2-4) % Baso % (Auto) 0.9 (0-2) % Neut # (Auto) 3400 (7565-7051) /uL Lymph # (Auto) 1400 (1048-7123) /uL [place] # (Auto) 500 (0-900) /uL Eos # (Auto) 100 (0-450) /uL Baso # (Auto) 0 (0-100) /uL PT 11.7 (10.1-12.7) SECONDS INR 1.0 (0.9-1.3) APTT 34 (26.4-36.2) SECONDS Sodium 140 (137-145) mmol/L Potassium 3.7 (3.4-5.1) mmol/L Chloride 104 (98-107) mmol/L Carbon Dioxide 27 (22-32) mmol/L BUN 17 (9-20) mg/dL Creatinine 1.00 (0.66-1.25) mg/dL Estimated GFR > 60.0 (>60) mL/min BUN/Creatinine Ratio 17.0 (6-22) Glucose 74 L (80-110) mg/dL Calcium 9.1 (8.4-10.2) mg/dL Total Bilirubin 0.3 (0.2-1.3) mg/dL AST 23 (17-59) IU/L ALT 14 (<50) IU/L Alkaline Phosphatase 93 (38-126) U/L Total Creatine Kinase 92 (55-170) U/L CK-MB (CK-2) TNP CK-MB (CK-2) Rel Index TNP Troponin I < 0.012 (0.01-0.034) ng/mL Total Protein 7.1 (6.3-8.2) g/dL Albumin 4.1 (3.5-5.0) g/dL Globulin 3.0 (1.7-4.1) g/dL Albumin/Globulin Ratio 1.4 (1.0-2.8) Lipase 62 (23-300) U/L 07/28/19 Range/Units 18:01 WBC (4.5-11.0) X10^3/uL RBC (4.5-5.9) X10^6/uL Hgb (13.5-17.5) g/dL Hct (41-53) % MCV (80-100) fL MCH (26-34) PG MCHC (30-36) % RDW (11.6-14.8) % Plt Count (150-400) X10^3/uL Neut % (Auto) (50-75) % Lymph % (Auto) (25-40) % [place] % (Auto) (3-14) % Eos % (Auto) (2-4) % Baso % (Auto) (0-2) % Neut # (Auto) (5888-0881) /uL Lymph # (Auto) (0827-2318) /uL [place] # (Auto) (0-900) /uL Eos # (Auto) (0-450) /uL Baso # (Auto) (0-100) /uL PT (10.1-12.7) SECONDS INR (0.9-1.3) APTT (26.4-36.2) SECONDS Sodium (137-145) mmol/L Potassium (3.4-5.1) mmol/L Chloride (98-107) mmol/L Carbon Dioxide (22-32) mmol/L BUN (9-20) mg/dL Creatinine (0.66-1.25) mg/dL Estimated GFR (>60) mL/min BUN/Creatinine Ratio (6-22) Glucose (80-110) mg/dL Calcium (8.4-10.2) mg/dL Total Bilirubin (0.2-1.3) mg/dL AST (17-59) IU/L ALT (<50) IU/L Alkaline Phosphatase (38-126) U/L Total Creatine Kinase (55-170) U/L CK-MB (CK-2) CK-MB (CK-2) Rel Index Troponin I < 0.012 (0.01-0.034) ng/mL Total Protein (6.3-8.2) g/dL Albumin (3.5-5.0) g/dL Globulin (1.7-4.1) g/dL Albumin/Globulin Ratio (1.0-2.8) Lipase (23-300) U/L ECG Data Attestation: I personally reviewed and interpreted this ECG as follows: Interpretation: The patient's EKG obtained on July 28 at 15:0 1:40 a.m. reveals a ventricular rate of 62 with a sinus rhythm. The intervals are normal with a QTC of 445 milliseconds. [place] is normal. The patient has a Q-wave in lead III. The patient has flat T-waves in lead III and an inverted T-wave in V1. His EKG otherwise appears normal without any acute diagnostic ST segment changes. The patient has low voltage in the proper inferior leads. Discharge Plan Departure Patient Disposition: Home Clinical Impression: Atypical chest pain, Dizziness, nonspecific, Hypoglycemia Discharge Date/Time: 07/28/19 19:15 Instructions: DI for Acute Coronary Syndrome, DI for Atypical Chest Pain, DI for Hypoglycemia Activity Restrictions/Additional Instructions: You need to follow-up with her primary care physician and be referred to Cardiology for possible evaluation including an echocardiogram, stress test, and Holter monitor. Keep a log of when dizzy spells occur and the circumstances surrounding and how long they occur. If you become dizzy lightheaded developed chest pain that radiates to your back neck and jaw or shoulder or arm you need to return to the emergency department if you feel dizzy as if you're going to pass out you need to return to the emergency department. Continue your current medications. Prescriptions: No Action aspirin 81 MG tablet,delayed release (DR/EC) 81 mg PO QDAY Qty: 0 RF: 0 pantoprazole [Protonix] 40 MG tablet,delayed release (DR/EC) 40 mg PO QDAY Qty: 30 RF: 0 isosorbide mononitrate 30 MG tablet extended release 24 hr 30 mg PO QDAY Qty: 30 RF: 0 atorvastatin [Lipitor] 40 MG tablet 40 mg PO HS Qty: 30 RF: 3 atorvastatin 40 mg Tablet 40 mg PO DAILY RF: 0 aspirin 81 mg Tablet,Delayed Release (Dr/Ec) 81 mg PO DAILY RF: 0 ascorbic acid (vitamin C) [Vitamin C] 250 mg Tablet 250 mg PO DAILY RF: 0 ibuprofen 200 mg Tablet 200 mg PO DIRECTED PRN (Reason: pain) RF: 0 gabapentin 300 mg Capsule 300 mg PO BID-TID RF: 0 memantine 10 mg Tablet 10 mg PO BID RF: 0 lidocaine 5 % Adhesive Patch,Medicated 1 patch TOPICAL DAILY RF: 0 Referrals: Lavelle Oliveira MD [Primary Care Provider] -
[2019-07-28 18:44] LABS: Troponin I < 0.012 ng/mL (0.01-0.034)
== END 2019-07-28 19:15 | disposition home or self-care (01) ==
PROVIDERS: Emergency Provider Emergency Medicine; PCP Family Medicine
DX: R07.89 Other chest pain (principal); R42 Dizziness and giddiness; E16.2 Hypoglycemia, unspecified
CPT/HCPCS: 36415; 71045; 80053; 82550; 83690; 84484; 85025; 85610; 85730; 93005; 93010; 96360; 99284; 99285

== ENCOUNTER 2021-02-07 19:59 | Emergency (ER) | payer OTHER, SELFPAY ==
[2021-02-07] VITALS (10 sets, daily range): BP systolic 123–166; BP diastolic 67–91; PULSE 58–66; RESP 24; TEMP 36.4; O2SAT 92–99
--- NOTE | 2021-02-07 20:01 | DI.CT.S_ITS ---
PROCEDURE: CT HEAD/BRAIN WO CON INDICATIONS: confusion possible trauma TECHNIQUE: Noncontrast 4.5 mm thick angled axial sections acquired from the foramen magnum to the vertex, with coronal and sagittal reformats. For radiation dose reduction, the following was used: automated exposure control, adjustment of mA and/or kV according to patient size. COMPARISON: [facility], CT, CT HEAD/BRAIN WO CON, 06/06/2019, 17:26. [facility], CT, CT HEAD/BRAIN WO CON, 12/11/2018, 12:06. FINDINGS: Image quality: Excellent. CSF spaces: Basal cisterns are patent. No extra-axial fluid collections. The ventricles are symmetric in size and shape. Brain: No intracranial masses. There are left-sided There is cerebral volume loss for age, with resultant ventricular and sulcal prominence. There are periventricular and deep white matter chronic small vessel ischemic changes. There is intracranial internal carotid artery atherosclerosis. Skull and face: Calvarium and visualized facial bones appear intact, without suspicious lesions. Sinuses: Visualized sinuses and mastoids are clear. IMPRESSION: A combination of both subdural and subarachnoid hemorrhage is present on the left, interdigitating within left temporal region and left parietal region sulci, without significant mass effect. A portion of the thin hemorrhage extends into the sylvian fissure. No brain tissue hemorrhage is found. No overlying calvarial fracture is identified. No midline shift from left to right. Findings immediately called to and discussed with Dr. Walden, caring for the patient. Dictated by: Richard Aleman M.D. on 02/07/2021 at 20:38 Approved by: Richard Aleman M.D. on 02/07/2021 at 20:44
--- NOTE | 2021-02-07 20:13 | ED.GENADULT ---
HPI - General Adult <Rajeev Walden DO - Last Filed: 02/08/21 17:55> General Chief complaint: Altered Mental Status Stated complaint: Stroke Time Seen by Provider: 02/07/21 20:01 Source: EMS Mode of arrival: EMS Limitations: altered mental status History of Present Illness HPI narrative: Patient is an 85-year-old male. No reported anticoagulation. EMS reports they were called by the patient's for evaluation of altered mental status. The patient does have reported history of dementia. Is also reported that his has a history of dementia. They live together here in town. His last known normal was 1829 by report but this is not necessarily confirmed. Is reported that the patient's found him sitting on their stairs at home more confused than normal. She was the 1 who contacted EMS. There is no reports of any trauma. Patient is unable to provide any HPI or review of systems. Related Data Home Medications Medication Instructions Recorded Confirmed aspirin 81 mg tablet,delayed 81 mg PO QDAY #0 05/30/06 release ascorbic acid (vitamin C) 250 mg 250 mg PO DAILY 06/06/19 06/06/19 tablet (Vitamin C) aspirin 81 mg tablet,delayed 81 mg PO DAILY 06/06/19 06/06/19 release atorvastatin 40 mg tablet 40 mg PO DAILY 06/06/19 06/06/19 gabapentin 300 mg capsule 300 mg PO BID-TID 06/06/19 06/06/19 ibuprofen 200 mg tablet 200 mg PO DIRECTED PRN 06/06/19 06/06/19 memantine 10 mg tablet 10 mg PO BID 06/06/19 06/06/19 lidocaine 5 % topical patch 1 patch TOPICAL DAILY 07/28/19 07/28/19 Previous Rx's Medication Instructions Recorded atorvastatin 40 mg tablet (Lipitor) 40 mg PO HS #30 tab 07/02/17 isosorbide mononitrate 30 mg 30 mg PO QDAY #30 tab 07/02/17 tablet,extended release 24 hr pantoprazole 40 mg tablet,delayed 40 mg PO QDAY #30 tab 07/02/17 release (Protonix) Allergies Allergy/AdvReac Type Severity Reaction Status Date / Time No Known Drug Allergies Allergy Verified 07/28/19 15:00 <Duane Luz DO - Last Filed: 02/08/21 09:25> History of Present Illness HPI narrative: Patient is an 85-year-old male. No reported anticoagulation. EMS reports they were called by the patient's for evaluation of altered mental status. The patient does have reported history of dementia. Is also reported that his has a history of dementia. They live together here in town. His last known normal was 1829 by report but this is not necessarily confirmed. Is reported that the patient's found him sitting on their stairs at home more confused than normal. She was the 1 who contacted EMS. There is no reports of any trauma. Patient is unable to provide any HPI or review of systems. PATIENT IS FULL CODE per daughter Uziel Review of Systems <Rajeev Walden DO - Last Filed: 02/08/21 17:55> Review of Systems ROS Unobtainable: Unobtainable due to mental condition Patient History <Rajeev Walden DO - Last Filed: 02/08/21 17:55> Medical History Atypical chest pain Chest pain Dementia Dizziness Gastroesophageal reflux disease Hypertension Viral upper respiratory infection Surgical History (Updated 02/08/21 @ 09:23 by Duane Luz DO) S/P CABG x 5 Social History Smoking Status: Never smoker Smoking Status: Never smoker alcohol intake frequency: holidays/special occasions only Substance Use Type: does not use Exam <Rajeev Walden DO - Last Filed: 02/08/21 17:55> Initial Vital Signs Initial Vital Signs: Vital Signs Temperature 97.6 F 02/07/21 20:06 Pulse Rate 60 02/07/21 20:06 Respiratory Rate 24 02/07/21 20:06 Blood Pressure 156/84 H 02/07/21 20:06 Pulse Oximetry 99 02/07/21 20:06 Const General: comfortable, well developed, well groomed, No in distress and No ill appearing HENMT Head: contusion (Left parietal/occipital region) Ears: hearing grossly normal bilaterally Nose: external nose normal Face and sinus: normal facial exam Eyes General: appearance normal, both eyes and all related structures Pupils: PERRL EOM: EOM intact bilaterally Neck Neck: normal visual inspection Chest Chest: No crepitus and No tenderness Resp Effort & Inspection: normal respiratory effort Auscultation: clear to auscultation bilaterally Cardio Rate: regular rate Rhythm: regular rhythm GI Inspection: normal to inspection and non-distended Palpation: soft Back/Spine/Pelvis Cervical Spine: No cervical spinal tenderness Thoracic/Lumbar Spine: No thoracic spinal tenderness and No lumbar spinal tenderness Skin Other: Contusion left posterior scalp Neuro General: patient alert, patient awake, moves all extremities and patient confused Cognition: abnormal cognition (Confusion) Speech: speech normal Motor: muscle tone normal throughout Sensory Exam: no sensory deficits noted Coordination: [id number] test normal Extrem General: normal to inspection and capillary refill normal Other: Does not seem to have any discomfort with movement of upper and lower extremities [place] palpation of his pelvis Psych Appearance: grossly normal and well kempt <Duane Luz DO - Last Filed: 02/08/21 09:25> Initial Vital Signs Initial Vital Signs: Vital Signs Temperature 97.6 F 02/07/21 20:06 Pulse Rate 60 02/07/21 20:06 Respiratory Rate 24 02/07/21 20:06 Blood Pressure 156/84 H 02/07/21 20:06 Pulse Oximetry 99 02/07/21 20:06 Scores <Rajeev Walden DO - Last Filed: 02/08/21 17:55> GCS [place] coma scale eye opening: Spontaneous [place] coma scale verbal response: Confused [place] coma scale motor response: Obey commands [place] coma scale total score: 14 NIH Stroke Scale Level of Conciousness: Alert, keenly responsive Ask month/age: Answers neither question correctly, aphasic, stuporous, coma Open/close eyes, close hand: Performs both tasks correctly Best gaze horizontal: Normal Visual nicholson: No visual loss Facial palsy: Normal symetrical movement Left arm drift: No drift for full 10 sec Right arm drift: No drift for full 10 sec Left leg drift: No drift for full 5 sec Right leg drift: No drift for full 5 sec Limb ataxia: Absent Sensory on face/arms/legs: Normal, no sensory loss Best language: No aphasia, normal Dysarthria: Normal Extinction or inattention: No abnormality Total NIH Stroke scale score: 2 <Duane Luz DO - Last Filed: 02/08/21 09:25> GCS [place] coma scale total score: 14 NIH Stroke Scale Total NIH Stroke scale score: 2 Course <Rajeev Walden DO - Last Filed: 02/08/21 17:55> Orders Ordered: Discontinued Medications Acetaminophen (Acetaminophen 325 Mg Tablet) 650 mg PO NOW ONE Stop: 02/07/21 22:51 Last Admin: 02/07/21 23:01 Dose: 650 mg Documented by: RISHI Sodium Chloride (Normal Saline 0.9%) 1,000 mls @ 500 mls/hr IV BOLUS ONE Stop: 02/08/21 08:38 Last Infusion: 02/08/21 09:12 Dose: 0 mls/hr Documented by: Admin: 02/08/21 06:51 Dose: 500 mls/hr Documented by: HAZEL Ondansetron HCl (Ondansetron 4 Mg/2 Ml Inj) 4 mg IV NOW ONE Stop: 02/07/21 21:17 Last Admin: 02/07/21 21:21 Dose: 4 mg Documented by: HAZEL Vital Signs Vital signs: Vital Signs - 8 hr 02/08/21 01:30 02/08/21 02:00 02/08/21 02:30 Pulse Rate 63 62 66 Respiratory Rate Blood Pressure 108/62 108/62 107/65 Pulse Oximetry 96 93 95 02/08/21 03:00 02/08/21 03:30 02/08/21 04:00 Pulse Rate 61 59 L 54 L Respiratory Rate Blood Pressure 104/61 99/57 L 99/56 L Pulse Oximetry 99 100 99 02/08/21 04:30 02/08/21 04:31 02/08/21 05:00 Pulse Rate 57 L 72 59 L Respiratory Rate Blood Pressure 95/53 L Pulse Oximetry 97 97 99 02/08/21 05:03 02/08/21 05:05 02/08/21 05:30 Pulse Rate 60 61 60 Respiratory Rate Blood Pressure 108/61 Pulse Oximetry 99 98 98 02/08/21 06:00 02/08/21 06:16 02/08/21 06:30 Pulse Rate 58 L 57 L 59 L Respiratory Rate Blood Pressure 107/58 L 99/57 L Pulse Oximetry 99 97 96 02/08/21 07:00 02/08/21 07:30 02/08/21 08:12 Pulse Rate 57 L 57 L 67 Respiratory Rate Blood Pressure 104/60 Pulse Oximetry 95 97 94 02/08/21 08:21 02/08/21 08:30 02/08/21 08:43 Pulse Rate 60 56 L Respiratory Rate 16 Blood Pressure 112/58 L Pulse Oximetry 100 100 02/08/21 09:00 Pulse Rate 55 L Respiratory Rate Blood Pressure Pulse Oximetry 100 <Duane Luz, - Last Filed: 02/08/21 09:25> Orders Ordered: Discontinued Medications Acetaminophen (Acetaminophen 325 Mg Tablet) 650 mg PO NOW ONE Stop: 02/07/21 22:51 Last Admin: 02/07/21 23:01 Dose: 650 mg Documented by: RISHI Sodium Chloride (Normal Saline 0.9%) 1,000 mls @ 500 mls/hr IV BOLUS ONE Stop: 02/08/21 08:38 Last Infusion: 02/08/21 09:12 Dose: 0 mls/hr Documented by: Admin: 02/08/21 06:51 Dose: 500 mls/hr Documented by: HAZEL Ondansetron HCl (Ondansetron 4 Mg/2 Ml Inj) 4 mg IV NOW ONE Stop: 02/07/21 21:17 Last Admin: 02/07/21 21:21 Dose: 4 mg Documented by: HAZEL Consultations Consultation #1: [id number] - [place] [facility] PHAN happy to accept [place] [facility] [facility] Consultation #2: Daughter UZIEL ([phone]) Vital Signs Vital signs: Vital Signs - 8 hr 02/08/21 01:30 02/08/21 02:00 02/08/21 02:30 Pulse Rate 63 62 66 Respiratory Rate Blood Pressure 108/62 108/62 107/65 Pulse Oximetry 96 93 95 02/08/21 03:00 02/08/21 03:30 02/08/21 04:00 Pulse Rate 61 59 L 54 L Respiratory Rate Blood Pressure 104/61 99/57 L 99/56 L Pulse Oximetry 99 100 99 02/08/21 04:30 02/08/21 04:31 02/08/21 05:00 Pulse Rate 57 L 72 59 L Respiratory Rate Blood Pressure 95/53 L Pulse Oximetry 97 97 99 02/08/21 05:03 02/08/21 05:05 02/08/21 05:30 Pulse Rate 60 61 60 Respiratory Rate Blood Pressure 108/61 Pulse Oximetry 99 98 98 02/08/21 06:00 02/08/21 06:16 02/08/21 06:30 Pulse Rate 58 L 57 L 59 L Respiratory Rate Blood Pressure 107/58 L 99/57 L Pulse Oximetry 99 97 96 02/08/21 07:00 02/08/21 07:30 02/08/21 08:12 Pulse Rate 57 L 57 L 67 Respiratory Rate Blood Pressure 104/60 Pulse Oximetry 95 97 94 02/08/21 08:21 02/08/21 08:30 02/08/21 08:43 Pulse Rate 60 56 L Respiratory Rate 16 Blood Pressure 112/58 L Pulse Oximetry 100 100 02/08/21 09:00 Pulse Rate 55 L Respiratory Rate Blood Pressure Pulse Oximetry 100 Medical Decision Making <Rajeev Walden, DO - Last Filed: 02/08/21 17:55> Medical Records Medical records reviewed: Yes I reviewed the patient's medical records. Lab Data Lab results reviewed: Yes I reviewed the patient's lab results. Result diagrams: 02/07/21 20:08 02/07/21 20:08 Labs: Lab Results 02/07/21 02/07/21 02/07/21 Range/Units 20:08 20:08 20:08 WBC 5.3 (4.5-11.0) X10^3/uL RBC 4.17 L (4.5-5.9) X10^6/uL Hgb 12.4 L (13.5-17.5) g/dL Hct 37.2 L (41-53) % MCV 89.2 (80-100) fL MCH 29.7 (26-34) PG MCHC 33.3 (30-36) % RDW 13.4 (11.6-14.8) % Plt Count 182 (150-400) X10^3/uL Neut % (Auto) 52.5 (50-75) % Lymph % (Auto) 35.9 (25-40) % [place] % (Auto) 10.5 (3-14) % Eos % (Auto) 0.7 L (2-4) % Baso % (Auto) 0.4 (0-2) % Neut # (Auto) 2800 (1113-6494) /uL Lymph # (Auto) 1900 (2540-5210) /uL [place] # (Auto) 600 (0-900) /uL Eos # (Auto) 0 (0-450) /uL Baso # (Auto) 0 (0-100) /uL PT (10.1-12.7) SECONDS INR (0.9-1.3) APTT (26.4-36.2) SECONDS Sodium 140 (137-145) mmol/L Potassium 3.5 (3.4-5.1) mmol/L Chloride 106 (98-107) mmol/L Carbon Dioxide 25 (22-32) mmol/L BUN 24 H (9-20) mg/dL Creatinine 0.91 (0.66-1.25) mg/dL Estimated GFR > 60.0 (>60) mL/min BUN/Creatinine Ratio 26.4 H (6-22) Glucose 142 H (80-110) mg/dL Calcium 9.0 (8.4-10.2) mg/dL Total Bilirubin 0.4 (0.2-1.3) mg/dL AST 38 (17-59) IU/L ALT 25 (<50) IU/L Alkaline Phosphatase 139 H (38-126) U/L Total Creatine Kinase 183 H (55-170) U/L CK-MB (CK-2) 2.99 H (<2.37) ng/mL CK-MB (CK-2) Rel Index 1.6 (1.5-5.0) % Troponin I < 0.012 (0.01-0.034) ng/mL Total Protein 6.9 (6.3-8.2) g/dL Albumin 4.1 (3.5-5.0) g/dL Globulin 2.8 (1.7-4.1) g/dL Albumin/Globulin Ratio 1.5 (1.0-2.8) Urine Color Urine Appearance Urine pH (4.5-8.0) Ur Specific [place] (1.000-1.035) Urine Protein (Negative) Urine Glucose (UA) (Negative) g/dL Urine Ketones (NEGATIVE) Urine Occult Blood (Negative) Urine Nitrate (Negative) Urine Bilirubin (NEGATIVE) Urine Urobilinogen (0.2) E.U./dL Ur Leukocyte Esterase (NEGATIVE) Urine RBC (0-5/HPF) Urine WBC (0-5/HPF) Urine Bacteria (None) Ur Culture Indicated? Micro UA Comment Salicylates < 1.0 (<20) mg/dL U Opiates 300ng/mL cut (Negative) Ur Oxycodone Screen (Negative) Urine Methadone Screen (Negative) Acetaminophen < 10 L (10-30) ug/mL Ur Barbiturates Screen (Negative) U Tricyclic Antidepress (Negative) Ur Phencyclidine Scrn (Negative) Ur Amphetamines Screen (Negative) U Methamphetamines Scrn (Negative) Ur MDMA Scrn (Ecstasy) (Negative) U Benzodiazepines Scrn (Negative) Urine Cocaine Screen (Negative) U Marijuana (THC) Screen (Negative) Ethyl Alcohol < 10 ( - 10) mg/dL SARS-CoV-2 (PCR) (Negative) 02/07/21 02/07/21 02/08/21 Range/Units 20:10 20:25 00:35 WBC (4.5-11.0) X10^3/uL RBC (4.5-5.9) X10^6/uL Hgb (13.5-17.5) g/dL Hct (41-53) % MCV (80-100) fL MCH (26-34) PG MCHC (30-36) % RDW (11.6-14.8) % Plt Count (150-400) X10^3/uL Neut % (Auto) (50-75) % Lymph % (Auto) (25-40) % [place] % (Auto) (3-14) % Eos % (Auto) (2-4) % Baso % (Auto) (0-2) % Neut # (Auto) (0554-0225) /uL Lymph # (Auto) (3897-6566) /uL [place] # (Auto) (0-900) /uL Eos # (Auto) (0-450) /uL Baso # (Auto) (0-100) /uL PT 12.1 (10.1-12.7) SECONDS INR 1.1 (0.9-1.3) APTT 31 (26.4-36.2) SECONDS Sodium (137-145) mmol/L Potassium (3.4-5.1) mmol/L Chloride (98-107) mmol/L Carbon Dioxide (22-32) mmol/L BUN (9-20) mg/dL Creatinine (0.66-1.25) mg/dL Estimated GFR (>60) mL/min BUN/Creatinine Ratio (6-22) Glucose (80-110) mg/dL Calcium (8.4-10.2) mg/dL Total Bilirubin (0.2-1.3) mg/dL AST (17-59) IU/L ALT (<50) IU/L Alkaline Phosphatase (38-126) U/L Total Creatine Kinase (55-170) U/L CK-MB (CK-2) (<2.37) ng/mL CK-MB (CK-2) Rel Index (1.5-5.0) % Troponin I (0.01-0.034) ng/mL Total Protein (6.3-8.2) g/dL Albumin (3.5-5.0) g/dL Globulin (1.7-4.1) g/dL Albumin/Globulin Ratio (1.0-2.8) Urine Color Urine Appearance Urine pH (4.5-8.0) Ur Specific [place] (1.000-1.035) Urine Protein (Negative) Urine Glucose (UA) (Negative) g/dL Urine Ketones (NEGATIVE) Urine Occult Blood (Negative) Urine Nitrate (Negative) Urine Bilirubin (NEGATIVE) Urine Urobilinogen (0.2) E.U./dL Ur Leukocyte Esterase (NEGATIVE) Urine RBC (0-5/HPF) Urine WBC (0-5/HPF) Urine Bacteria (None) Ur Culture Indicated? Micro UA Comment Salicylates (<20) mg/dL U Opiates 300ng/mL cut Negative (Negative) Ur Oxycodone Screen Negative (Negative) Urine Methadone Screen Negative (Negative) Acetaminophen (10-30) ug/mL Ur Barbiturates Screen Negative (Negative) U Tricyclic Antidepress Negative (Negative) Ur Phencyclidine Scrn Negative (Negative) Ur Amphetamines Screen Negative (Negative) U Methamphetamines Scrn Negative (Negative) Ur MDMA Scrn (Ecstasy) Negative (Negative) U Benzodiazepines Scrn Negative (Negative) Urine Cocaine Screen Negative (Negative) U Marijuana (THC) Screen Negative (Negative) Ethyl Alcohol ( - 10) mg/dL SARS-CoV-2 (PCR) Negative (Negative) 02/08/21 Range/Units 00:35 WBC (4.5-11.0) X10^3/uL RBC (4.5-5.9) X10^6/uL Hgb (13.5-17.5) g/dL Hct (41-53) % MCV (80-100) fL MCH (26-34) PG MCHC (30-36) % RDW (11.6-14.8) % Plt Count (150-400) X10^3/uL Neut % (Auto) (50-75) % Lymph % (Auto) (25-40) % [place] % (Auto) (3-14) % Eos % (Auto) (2-4) % Baso % (Auto) (0-2) % Neut # (Auto) (5770-2710) /uL Lymph # (Auto) (3806-0670) /uL [place] # (Auto) (0-900) /uL Eos # (Auto) (0-450) /uL Baso # (Auto) (0-100) /uL PT (10.1-12.7) SECONDS INR (0.9-1.3) APTT (26.4-36.2) SECONDS Sodium (137-145) mmol/L Potassium (3.4-5.1) mmol/L Chloride (98-107) mmol/L Carbon Dioxide (22-32) mmol/L BUN (9-20) mg/dL Creatinine (0.66-1.25) mg/dL Estimated GFR (>60) mL/min BUN/Creatinine Ratio (6-22) Glucose (80-110) mg/dL Calcium (8.4-10.2) mg/dL Total Bilirubin (0.2-1.3) mg/dL AST (17-59) IU/L ALT (<50) IU/L Alkaline Phosphatase (38-126) U/L Total Creatine Kinase (55-170) U/L CK-MB (CK-2) (<2.37) ng/mL CK-MB (CK-2) Rel Index (1.5-5.0) % Troponin I (0.01-0.034) ng/mL Total Protein (6.3-8.2) g/dL Albumin (3.5-5.0) g/dL Globulin (1.7-4.1) g/dL Albumin/Globulin Ratio (1.0-2.8) Urine Color Yellow Urine Appearance Clear Urine pH 7.0 (4.5-8.0) Ur Specific [place] 1.015 (1.000-1.035) Urine Protein Negative (Negative) Urine Glucose (UA) Negative (Negative) g/dL Urine Ketones Negative (NEGATIVE) Urine Occult Blood Negative (Negative) Urine Nitrate Negative (Negative) Urine Bilirubin Negative (NEGATIVE) Urine Urobilinogen 1.0 (0.2) E.U./dL Ur Leukocyte Esterase Negative (NEGATIVE) Urine RBC None seen (0-5/HPF) Urine WBC None seen (0-5/HPF) Urine Bacteria None seen (None) Ur Culture Indicated? Cult not indicated Micro UA Comment Microscopic normal Salicylates (<20) mg/dL U Opiates 300ng/mL cut (Negative) Ur Oxycodone Screen (Negative) Urine Methadone Screen (Negative) Acetaminophen (10-30) ug/mL Ur Barbiturates Screen (Negative) U Tricyclic Antidepress (Negative) Ur Phencyclidine Scrn (Negative) Ur Amphetamines Screen (Negative) U Methamphetamines Scrn (Negative) Ur MDMA Scrn (Ecstasy) (Negative) U Benzodiazepines Scrn (Negative) Urine Cocaine Screen (Negative) U Marijuana (THC) Screen (Negative) Ethyl Alcohol ( - 10) mg/dL SARS-CoV-2 (PCR) (Negative) Point of Care Testing Glucose POC 139 Point of care testing: Point of Care Testing Glucose POC [address] scan - head: Radiologist's Impression: [address] [id number] Scan ReportSigned Patient: Wellington OcampoMR#: [id number]: 7Acct:[id number]/Sex: 85 / MDate of Service: 02/07/21Loc: EDAccession Number: [id number] Procedure: CT head/brain wo con Ordering Provider: Rajeev Walden D.O. PROCEDURE: CT HEAD/BRAIN WO CON INDICATIONS: confusion possible trauma TECHNIQUE: Noncontrast 4.5 mm thick angled axial sections acquired from the foramen magnum to the vertex, with coronal and sagittal reformats. For radiation dose reduction, the following was used: automated exposure control, adjustment of mA and/or kV according to patient size. COMPARISON: [facility], CT, CT HEAD/BRAIN WO CON, 06/06/2019, 17:26. [facility], CT, CT HEAD/BRAIN WO CON, 12/11/2018, 12:06. FINDINGS: Image quality: Excellent. CSF spaces: Basal cisterns are patent. No extra-axial fluid collections. The ventricles are symmetric in size and shape. Brain: No intracranial masses. There are left-sided There is cerebral volume loss for age, with resultant ventricular and sulcal prominence. There are periventricular and deep white matter chronic small vessel ischemic changes. There is intracranial internal carotid artery atherosclerosis. Skull and face: Calvarium and visualized facial bones appear intact, without suspicious lesions. Sinuses: Visualized sinuses and mastoids are clear. IMPRESSION: A combination of both subdural and subarachnoid hemorrhage is present on the left, interdigitating within left temporal region and left parietal region sulci, without significant mass effect. A portion of the thin hemorrhage extends into the sylvian fissure. No brain tissue hemorrhage is found. No overlying calvarial fracture is identified. No midline shift from left to right. Findings immediately called to and discussed with Dr. Walden, caring for the patient. Dictated by: Richard Aleman M.D. on 02/07/2021 at 20:38 Approved by: Richard Aleman M.D. on 02/07/2021 at 20:[address]: Radiologist's Impression: Left sylvian fissure and left frontoparietal sulcal blood collections have improved when compared to previous exam. No new hemorrhages. No signs of cortical infarction ECG Data Attestation: I personally reviewed and interpreted this ECG as follows: Interpretation: Sinus rhythm Ventricular rate is 60 Normal axis Normal QRS Normal QTC No ST T wave changes MDM Narrative Medical decision making narrative: 85-year-old male not on anticoagulation. Was unable to provide any HPI review of systems upon arrival secondary to confusion. He did have a contusion on the left posterior portion of his scalp. Initial head CT shows a subdural and subarachnoid hemorrhage. After a period of time waiting for neural surgery to contact us back I did discuss the case with Neurosurgery at [facility]. He reviewed the head CT. At that point it had been 3-1/2 hours after his initial head CT in neurosurgery recommended a repeat head CT at the 4 hour jimena. He stated that if the head bleed had not worsened than the plan will be is for the patient to be admitted for observation and then work with disposition. Nurse surgery a stated that it would not be unreasonable for the patient to stay at our facility despite the lack of neuro surgery consultation because there would be no indication for surgery. He did state that he would accept the patient in transfer it if our hospitalist was uncomfortable with admitting the patient. A repeat head CT showed that the subarachnoid hemorrhage had not improved but had not worsened. The subdural hemorrhage had improved. I did discuss the case with ASSISTANT Coats the night hospitalist to stated that there was concern about potential worsening of the patient's condition and so she has that the patient be transferred. We contacted [facility] once again stating that we would like to proceed with transfer. The patient remained in the emergency department for greater than 12 hours waiting for transfer without deterioration. He was actually improving clinically. I then discussed the case with Dr. Marquez with Internal Medicine after changes shift to again felt uncomfortable accepting the patient despite the fact that he has been in the emergency department for 12 hours without deterioration an actual improvement. Stating that there was concern about risk of seizures and potential need for Neurology consultation. Will continue to work on transfer. The care turned over to Dr. Luz to continue to observe the patient until transfer. <Duane Luz, DO - Last Filed: 02/08/21 09:25> Lab Data Labs: Lab Results 02/07/21 02/07/21 02/07/21 Range/Units 20:08 20:08 20:08 WBC 5.3 (4.5-11.0) X10^3/uL RBC 4.17 L (4.5-5.9) X10^6/uL Hgb 12.4 L (13.5-17.5) g/dL Hct 37.2 L (41-53) % MCV 89.2 (80-100) fL MCH 29.7 (26-34) PG MCHC 33.3 (30-36) % RDW 13.4 (11.6-14.8) % Plt Count 182 (150-400) X10^3/uL Neut % (Auto) 52.5 (50-75) % Lymph % (Auto) 35.9 (25-40) % [place] % (Auto) 10.5 (3-14) % Eos % (Auto) 0.7 L (2-4) % Baso % (Auto) 0.4 (0-2) % Neut # (Auto) 2800 (3125-4986) /uL Lymph # (Auto) 1900 (0865-9800) /uL [place] # (Auto) 600 (0-900) /uL Eos # (Auto) 0 (0-450) /uL Baso # (Auto) 0 (0-100) /uL PT (10.1-12.7) SECONDS INR (0.9-1.3) APTT (26.4-36.2) SECONDS Sodium 140 (137-145) mmol/L Potassium 3.5 (3.4-5.1) mmol/L Chloride 106 (98-107) mmol/L Carbon Dioxide 25 (22-32) mmol/L BUN 24 H (9-20) mg/dL Creatinine 0.91 (0.66-1.25) mg/dL Estimated GFR > 60.0 (>60) mL/min BUN/Creatinine Ratio 26.4 H (6-22) Glucose 142 H (80-110) mg/dL Calcium 9.0 (8.4-10.2) mg/dL Total Bilirubin 0.4 (0.2-1.3) mg/dL AST 38 (17-59) IU/L ALT 25 (<50) IU/L Alkaline Phosphatase 139 H (38-126) U/L Total Creatine Kinase 183 H (55-170) U/L CK-MB (CK-2) 2.99 H (<2.37) ng/mL CK-MB (CK-2) Rel Index 1.6 (1.5-5.0) % Troponin I < 0.012 (0.01-0.034) ng/mL Total Protein 6.9 (6.3-8.2) g/dL Albumin 4.1 (3.5-5.0) g/dL Globulin 2.8 (1.7-4.1) g/dL Albumin/Globulin Ratio 1.5 (1.0-2.8) Urine Color Urine Appearance Urine pH (4.5-8.0) Ur Specific [place] (1.000-1.035) Urine Protein (Negative) Urine Glucose (UA) (Negative) g/dL Urine Ketones (NEGATIVE) Urine Occult Blood (Negative) Urine Nitrate (Negative) Urine Bilirubin (NEGATIVE) Urine Urobilinogen (0.2) E.U./dL Ur Leukocyte Esterase (NEGATIVE) Urine RBC (0-5/HPF) Urine WBC (0-5/HPF) Urine Bacteria (None) Ur Culture Indicated? Micro UA Comment Salicylates < 1.0 (<20) mg/dL U Opiates 300ng/mL cut (Negative) Ur Oxycodone Screen (Negative) Urine Methadone Screen (Negative) Acetaminophen < 10 L (10-30) ug/mL Ur Barbiturates Screen (Negative) U Tricyclic Antidepress (Negative) Ur Phencyclidine Scrn (Negative) Ur Amphetamines Screen (Negative) U Methamphetamines Scrn (Negative) Ur MDMA Scrn (Ecstasy) (Negative) U Benzodiazepines Scrn (Negative) Urine Cocaine Screen (Negative) U Marijuana (THC) Screen (Negative) Ethyl Alcohol < 10 ( - 10) mg/dL SARS-CoV-2 (PCR) (Negative) 02/07/21 02/07/21 02/08/21 Range/Units 20:10 20:25 00:35 WBC (4.5-11.0) X10^3/uL RBC (4.5-5.9) X10^6/uL Hgb (13.5-17.5) g/dL Hct (41-53) % MCV (80-100) fL MCH (26-34) PG MCHC (30-36) % RDW (11.6-14.8) % Plt Count (150-400) X10^3/uL Neut % (Auto) (50-75) % Lymph % (Auto) (25-40) % [place] % (Auto) (3-14) % Eos % (Auto) (2-4) % Baso % (Auto) (0-2) % Neut # (Auto) (2822-3526) /uL Lymph # (Auto) (6052-2446) /uL [place] # (Auto) (0-900) /uL Eos # (Auto) (0-450) /uL Baso # (Auto) (0-100) /uL PT 12.1 (10.1-12.7) SECONDS INR 1.1 (0.9-1.3) APTT 31 (26.4-36.2) SECONDS Sodium (137-145) mmol/L Potassium (3.4-5.1) mmol/L Chloride (98-107) mmol/L Carbon Dioxide (22-32) mmol/L BUN (9-20) mg/dL Creatinine (0.66-1.25) mg/dL Estimated GFR (>60) mL/min BUN/Creatinine Ratio (6-22) Glucose (80-110) mg/dL Calcium (8.4-10.2) mg/dL Total Bilirubin (0.2-1.3) mg/dL AST (17-59) IU/L ALT (<50) IU/L Alkaline Phosphatase (38-126) U/L Total Creatine Kinase (55-170) U/L CK-MB (CK-2) (<2.37) ng/mL CK-MB (CK-2) Rel Index (1.5-5.0) % Troponin I (0.01-0.034) ng/mL Total Protein (6.3-8.2) g/dL Albumin (3.5-5.0) g/dL Globulin (1.7-4.1) g/dL Albumin/Globulin Ratio (1.0-2.8) Urine Color Urine Appearance Urine pH (4.5-8.0) Ur Specific [place] (1.000-1.035) Urine Protein (Negative) Urine Glucose (UA) (Negative) g/dL Urine Ketones (NEGATIVE) Urine Occult Blood (Negative) Urine Nitrate (Negative) Urine Bilirubin (NEGATIVE) Urine Urobilinogen (0.2) E.U./dL Ur Leukocyte Esterase (NEGATIVE) Urine RBC (0-5/HPF) Urine WBC (0-5/HPF) Urine Bacteria (None) Ur Culture Indicated? Micro UA Comment Salicylates (<20) mg/dL U Opiates 300ng/mL cut Negative (Negative) Ur Oxycodone Screen Negative (Negative) Urine Methadone Screen Negative (Negative) Acetaminophen (10-30) ug/mL Ur Barbiturates Screen Negative (Negative) U Tricyclic Antidepress Negative (Negative) Ur Phencyclidine Scrn Negative (Negative) Ur Amphetamines Screen Negative (Negative) U Methamphetamines Scrn Negative (Negative) Ur MDMA Scrn (Ecstasy) Negative (Negative) U Benzodiazepines Scrn Negative (Negative) Urine Cocaine Screen Negative (Negative) U Marijuana (THC) Screen Negative (Negative) Ethyl Alcohol ( - 10) mg/dL SARS-CoV-2 (PCR) Negative (Negative) 02/08/21 Range/Units 00:35 WBC (4.5-11.0) X10^3/uL RBC (4.5-5.9) X10^6/uL Hgb (13.5-17.5) g/dL Hct (41-53) % MCV (80-100) fL MCH (26-34) PG MCHC (30-36) % RDW (11.6-14.8) % Plt Count (150-400) X10^3/uL Neut % (Auto) (50-75) % Lymph % (Auto) (25-40) % [place] % (Auto) (3-14) % Eos % (Auto) (2-4) % Baso % (Auto) (0-2) % Neut # (Auto) (1430-8997) /uL Lymph # (Auto) (5804-8450) /uL [place] # (Auto) (0-900) /uL Eos # (Auto) (0-450) /uL Baso # (Auto) (0-100) /uL PT (10.1-12.7) SECONDS INR (0.9-1.3) APTT (26.4-36.2) SECONDS Sodium (137-145) mmol/L Potassium (3.4-5.1) mmol/L Chloride (98-107) mmol/L Carbon Dioxide (22-32) mmol/L BUN (9-20) mg/dL Creatinine (0.66-1.25) mg/dL Estimated GFR (>60) mL/min BUN/Creatinine Ratio (6-22) Glucose (80-110) mg/dL Calcium (8.4-10.2) mg/dL Total Bilirubin (0.2-1.3) mg/dL AST (17-59) IU/L ALT (<50) IU/L Alkaline Phosphatase (38-126) U/L Total Creatine Kinase (55-170) U/L CK-MB (CK-2) (<2.37) ng/mL CK-MB (CK-2) Rel Index (1.5-5.0) % Troponin I (0.01-0.034) ng/mL Total Protein (6.3-8.2) g/dL Albumin (3.5-5.0) g/dL Globulin (1.7-4.1) g/dL Albumin/Globulin Ratio (1.0-2.8) Urine Color Yellow Urine Appearance Clear Urine pH 7.0 (4.5-8.0) Ur Specific [place] 1.015 (1.000-1.035) Urine Protein Negative (Negative) Urine Glucose (UA) Negative (Negative) g/dL Urine Ketones Negative (NEGATIVE) Urine Occult Blood Negative (Negative) Urine Nitrate Negative (Negative) Urine Bilirubin Negative (NEGATIVE) Urine Urobilinogen 1.0 (0.2) E.U./dL Ur Leukocyte Esterase Negative (NEGATIVE) Urine RBC None seen (0-5/HPF) Urine WBC None seen (0-5/HPF) Urine Bacteria None seen (None) Ur Culture Indicated? Cult not indicated Micro UA Comment Microscopic normal Salicylates (<20) mg/dL U Opiates 300ng/mL cut (Negative) Ur Oxycodone Screen (Negative) Urine Methadone Screen (Negative) Acetaminophen (10-30) ug/mL Ur Barbiturates Screen (Negative) U Tricyclic Antidepress (Negative) Ur Phencyclidine Scrn (Negative) Ur Amphetamines Screen (Negative) U Methamphetamines Scrn (Negative) Ur MDMA Scrn (Ecstasy) (Negative) U Benzodiazepines Scrn (Negative) Urine Cocaine Screen (Negative) U Marijuana (THC) Screen (Negative) Ethyl Alcohol ( - 10) mg/dL SARS-CoV-2 (PCR) (Negative) Point of Care Testing Glucose POC 139 Point of care testing: Point of Care Testing Glucose POC 139 <Duane Luz, DO - Last Filed: 02/08/21 09:25> Critical Care Time Attestation: The high probability of a clinically significant, sudden or life threatening deterioration of the [CV/NV] system(s) required my full and direct attention, intervention and personal management. The aggregate critical care time was [40] minutes. This time is in addition to time spent performing reported procedures but includes the following: [x] Data Review and interpretation [x] Patient assessment and monitoring of vital signs [x] Documentation [x] Medication orders and management Discharge Plan Departure Patient Disposition: [facility] Clinical Impression: Subarachnoid hemorrhage, Confusion, Subdural hemorrhage, Contusion of scalp Prescriptions: No Action aspirin 81 MG tablet,delayed release (DR/EC) 81 mg PO QDAY Qty: 0 RF: 0 pantoprazole [Protonix] 40 MG tablet,delayed release (DR/EC) 40 mg PO QDAY Qty: 30 RF: 0 isosorbide mononitrate 30 MG tablet extended release 24 hr 30 mg PO QDAY Qty: 30 RF: 0 atorvastatin [Lipitor] 40 MG tablet 40 mg PO HS Qty: 30 RF: 3 atorvastatin 40 mg Tablet 40 mg PO DAILY RF: 0 aspirin 81 mg Tablet,Delayed Release (Dr/Ec) 81 mg PO DAILY RF: 0 ascorbic acid (vitamin C) [Vitamin C] 250 mg Tablet 250 mg PO DAILY RF: 0 ibuprofen 200 mg Tablet 200 mg PO DIRECTED PRN (Reason: pain) RF: 0 gabapentin 300 mg Capsule 300 mg PO BID-TID RF: 0 memantine 10 mg Tablet 10 mg PO BID RF: 0 lidocaine 5 % Adhesive Patch,Medicated 1 patch TOPICAL DAILY RF: 0 Referrals: Lavelle Oliveira MD [Primary Care Provider] -
[2021-02-07 20:25] LABS: Acetaminophen < 10 ug/mL (10-30); Alanine Aminotransferase 25 IU/L (<50); Albumin 4.1 g/dL (3.5-5.0); Albumin Globulin Ratio 1.5 (1.0-2.8); Alkaline Phosphatase 139 U/L (38-126); Aspartate Aminotransferase 38 IU/L (17-59); BUN Creatinine Ratio 26.4 (6-22); Bilirubin Total 0.4 mg/dL (0.2-1.3); Blood Urea Nitrogen 24 mg/dL (9-20); Carbon Dioxide 25 mmol/L (22-32); Chloride 106 mmol/L (98-107); Creatine Kinase 183 U/L (55-170); Estimated Glomerular Filt Rate > 60.0 mL/min (>60); Ethanol (ETOH) < 10 mg/dL; Globulin 2.8 g/dL (1.7-4.1); Glucose 142 mg/dL (80-110); HEMOLYSIS < 15 (0-50); Potassium 3.5 mmol/L (3.4-5.1); Salicylate < 1.0 mg/dL (<20); Sodium 140 mmol/L (137-145); Total Protein 6.9 g/dL (6.3-8.2)
[2021-02-07 20:26] LABS: Add Manual Diff / Slide Review NO; Basophils Absolute Auto 0 /uL (0-100); Basophils Percent Auto 0.4 % (0-2); Eosinophils Absolute Auto 0 /uL (0-450); Eosinophils Percent Auto 0.7 % (2-4); Hematocrit 37.2 % (41-53); Hemoglobin 12.4 g/dL (13.5-17.5); Lymphocytes Absolute Auto 1900 /uL (1100-4500); Lymphocytes Percent Auto 35.9 % (25-40); Mean Corpuscular HGB Conc 33.3 % (30-36); Mean Corpuscular Hemoglobin 29.7 PG (26-34); Mean Corpuscular Volume 89.2 fL (80-100); Monocytes Absolute Auto 600 /uL (0-900); Monocytes Percent Auto 10.5 % (3-14); Neutrophils Absolute Auto 2800 /uL (1500-7000); Neutrophils Percent Auto 52.5 % (50-75); Platelet Count 182 X10^3/uL (150-400); Red Blood Cell Count 4.17 X10^6/uL (4.5-5.9); Red Cell Distribution Width 13.4 % (11.6-14.8); White Blood Cell Count 5.3 X10^3/uL (4.5-11.0)
[2021-02-07 20:36] LABS: Troponin I < 0.012 ng/mL (0.01-0.034)
[2021-02-07 20:40] LABS: CKMB % Relative Index 1.6 % (1.5-5.0); Creatine Kinase MB 2.99 ng/mL (<2.37)
[2021-02-07] MEDS: ONDANSETRON 4 MG/2 ML INJ IV (21:21)
--- NOTE | 2021-02-07 21:36 | PC.NURSE ---
Pt arrived via EMS after neighbor called 911 c/o altered mental status in pt. Baseline pt has dementia, is normally quiet with mild confusion. At this time pt AOx1, able to state name. PE[place]. Abrasion noted on top L head. Pt at first denied falling and now states that he did fall but cannot remember when. Daughter Mary was at pt's house last thursday (4 days ago) and pt had decreased appetite, dizziness, and episode of vomiting and not feeling well. Pt did have small episode of emesis in ED. given zofran 4mg. HR 56 regular, 96% on RA, COVID negative. Head CT revealed some subdural and subarachnoid bleeding. Images pushed to [facility]. Awaiting further orders.
[2021-02-07 22:06] LABS: COVID19 - ADMIT (NP swab/PCR) Negative (Negative)
[2021-02-07] MEDS: ACETAMINOPHEN 325 MG TABLET 650 MG PO (23:01)
[2021-02-07 23:39] LABS: INR 1.1 (0.9-1.3); Prothrombin Time 12.1 SECONDS (10.1-12.7)
[2021-02-07 23:42] LABS: PTT Partial Thromboplastin Tim 31 SECONDS (26.4-36.2)
[2021-02-08] VITALS (29 sets, daily range): BP systolic 95–113; BP diastolic 53–65; PULSE 54–72; RESP 16; O2SAT 93–100
--- NOTE | 2021-02-08 | DI.CT.S_ITS ---
PROCEDURE: CT HEAD/BRAIN WO CON INDICATIONS: repeat head CT request by neurosurgery TECHNIQUE: Noncontrast 4.5 mm thick angled axial sections acquired from the foramen magnum to the vertex, with coronal and sagittal reformats. For radiation dose reduction, the following was used: automated exposure control, adjustment of mA and/or kV according to patient size. COMPARISON: [facility], CT, CT HEAD/BRAIN WO CON, 02/07/2021, 20:07. [facility], CT, CT HEAD/BRAIN WO CON, 06/06/2019, 17:26. FINDINGS: Image quality: Excellent. CSF spaces: Basal cisterns are patent. No extra-axial fluid collections. The ventricles are symmetric in size and shape. Brain: No new intracranial bleeds or masses. There is cerebral volume loss for age, with resultant ventricular and sulcal prominence. There are periventricular and deep white matter chronic small vessel ischemic changes. There is intracranial internal carotid artery atherosclerosis. Skull and face: Calvarium and visualized facial bones appear intact, without suspicious lesions. Sinuses: Visualized sinuses and mastoids are clear. IMPRESSION: The prior initial CT was performed 02/07/21 at approximately 8:07 p.m. and this follow-up CT is dated 02/08/21 at approximately 12:36 a.m. no new hemorrhage found. Note: These findings are concordant with the preliminary interpretation. Dictated by: Richard Aleman M.D. on 02/08/2021 at 8:27 Approved by: Richard Aleman M.D. on 02/08/2021 at 8:46
[2021-02-08 00:41] LABS: Bacteria Urine None Seen; RBC Urine None Seen (0-5/HPF); WBC Urine None Seen (0-5/HPF)
[2021-02-08 00:43] LABS: Appearance Urine UA CLEAR; Bilirubin Urine UA NEGATIVE (NEGATIVE); Color Urine UA YELLOW; Glucose Urine UA NEGATIVE (Negative); Ketones Urine UA NEGATIVE (NEGATIVE); Leukocyte Esterase Urine UA NEGATIVE (NEGATIVE); Nitrite Urine UA NEGATIVE (Negative); Occult Blood Urine UA NEGATIVE (Negative); Protein Urine UA NEGATIVE (Negative); Specific Gravity Urine UA 1.015 (1.000-1.035)
[2021-02-08 00:51] LABS: Culture Indicated Urine Cult Not Indicated; Ur Creatinine 5 (Normal); Ur Specific Gravity 1.025 (Normal); Urine Comments Microscopic Normal; Urine pH 5 (Normal)
[2021-02-08 00:52] LABS: UR Morphine/Opiate cutoff 300 Negative (Negative); Urine Amphetamines Negative (Negative); Urine Barbiturates Negative (Negative); Urine Benzodiazepines Negative (Negative); Urine Cocaine Negative (Negative); Urine MDMA Negative (Negative); Urine Methadone Negative (Negative); Urine Methamphetamines Negative (Negative); Urine Oxycodone Negative (Negative); Urine Phencyclidine Negative (Negative); Urine Tetrahydrocannabinol Negative (Negative); Urine Tricyclic Antidepressant Negative (Negative)
[2021-02-08] MEDS: SODIUM CHLORIDE 0.9% 1,000 ML 500 ML IV (06:51)
== END 2021-02-08 09:55 | disposition short-term general hospital (02) ==
PROVIDERS: Emergency Medicine; Emergency Provider Emergency Medicine; PCP Family Medicine
DX: I60.9 Nontraumatic subarachnoid hemorrhage, unspecified (principal); R41.0 Disorientation, unspecified; S00.03XA Contusion of scalp, initial encounter; I62.00 Nontraumatic subdural hemorrhage, unspecified; F03.90 Unspecified dementia, unspecified severity, without behavioral disturbance, psychotic disturbance, mood disturbance, and anxiety; Z20.822 Contact with and (suspected) exposure to COVID-19
CPT/HCPCS: 70450; 80053; 80305; 80320; 80329; 81001; 82550; 82553; 82962; 84484; 85025; 85610; 85730; 87635; 93005; 96361; 96374; 99284; 99291; C9803; G0480; J2405